=== PATIENT | male | born 1960 | race Hispanic/Latino ===

== ENCOUNTER 2023-07-23 16:51 | HOS | payer OTHER, BC, SELFPAY ==
[2023-07-23] VITALS (20 sets, daily range): BP systolic 107–146; BP diastolic 69–106; PULSE 101–125; RESP 14–30; TEMP 36.1; O2SAT 95–100
--- NOTE | ~2023-07-23 | XR_ITS ---
EXAMINATION: XR chest 1V portable Exam Date/Time: 07/23/2023 19:15 DEGREE CLERK HISTORY: lung CA Comparison: None. RESULT: Lines, tubes, and devices: None. Lungs and pleura: Moderate right costophrenic angle blunting. Cardiomediastinal silhouette: Unremarkable. Other: No acute osseous or upper abdominal finding. IMPRESSION: Moderate pleural effusion. Reviewed, dictated and finalized at location K. EE CLERK IMPRESSION: Moderate pleural effusion.
--- NOTE | 2023-07-23 17:31 | PC.NURSE ---
per call center receptionist, patient has taken 198 tablets of oxycodone 20mg tablets in 5 days. patient is here for further pain control
--- NOTE | 2023-07-23 17:52 | PC.NURSE ---
patient took last dose of oxycodone 40mg this morning around 0900. per hospice director, patient was given ms contin 100mg at 1330 with minimal relief. patient here to be admitted for pain control and to be monitored for detox from oxycodone.
--- NOTE | 2023-07-23 18:52 | ECG_ITS ---
Measurements Intervals [place] Rate: 116 P: 0 MN: 141 QRS: 52 QRSD: 87 T: -6 QT: 311 QTc: 432 Interpretive Statements SINUS TACHYCARDIA POSSIBLE LEFT ATRIAL ENLARGEMENT [-0.1mV P WAVE IN V1/V2] POSSIBLE RIGHT VENTRICULAR CONDUCTION DELAY [RSR (QR) IN V1/V2] ABNORMAL RHYTHM ECG NO PREVIOUS ECG AVAILABLE FOR COMPARISON Electronically Signed On 07-24-2023 8:40:23 NUCLEAR POWERPLANT SUPERVISOR by Renae Huntley M.D.
--- NOTE | 2023-07-23 18:52 | ED.GENADULT ---
HPI - General Adult General Chief complaint: Unspecified Stated complaint: INTRACTABLE PAIN, NEEDS MED ADJUSTMENT Time Seen by Provider: 07/23/23 18:03 History of Present Illness HPI narrative: 63-year-old male with history of metastatic lung cancer to his bones and lymph nodes, NSTEMI, T2DM, reports with his hospice nurse, Donnie, at bedside for uncontrolled pain. Pt was dx with metastatic lung cancer on March of 2021 and is currently in home hospice with [facility]. Per the hospice nurse, the patient took 198 pills of 20 mg oxycodone in the past 5 days. States he contacted the hospice physician who advised to take the pt to the ER for for opioid withdrawal and pain control. Hospice requests starting methadone with Dilaudid for breakthrough pain. The patient is reporting pain to this right anterior lateral chest wall that is worse with inspiration and coughing. Patient also reports some difficulty breathing. Pt was admitted to [facility] in [place] 10 days ago and had a thoracentesis of his right lung done at that time that drained 2 L of fluid. Denies fever, cough. Related Data Home Medications Medication Instructions Recorded Confirmed acetaminophen 1,000 mg PO Q8H PRN Pain, Mild 07/23/23 07/23/23 dexamethasone 4 mg tablet 8 mg PO BID 07/23/23 07/23/23 gabapentin 300 mg tablet 900 mg PO TID 07/23/23 07/23/23 insulin glargine 100 unit/mL (3 6 unit subcut QHS 07/23/23 07/23/23 mL) subcutaneous pen (Lantus Solostar U-100 Insulin) levetiracetam 1,000 mg tablet 1,000 mg PO BID 07/23/23 07/23/23 (Keppra) lorazepam 0.5 mg tablet 0.5 mg PO QHS 07/23/23 07/23/23 lorazepam 0.5 mg tablet 0.5 mg PO TID PRN Anxiety 07/23/23 07/23/23 metoprolol tartrate 50 mg tablet 50 mg PO BID 07/23/23 07/23/23 oxycodone 20 mg tablet 40 mg PO Q2H PRN Pain 07/23/23 07/23/23 sennosides 8.6 mg-docusate sodium 25.8 tab-cap PO BID 07/23/23 07/23/23 50 mg tablet (Senna-S) tamsulosin 0.4 mg capsule (Flomax) 0.4 mg PO QHS 07/23/23 07/23/23 Allergies Allergy/AdvReac Type Severity Reaction Status Date / Time metformin Allergy Unknown Verified 07/23/23 17:18 Review of Systems Review of Systems: CONSTITUTIONAL: Denies fever, chills, or sweats. EYES: Denies visual changes, redness, or discharge. ENT: Denies rhinorrhea, congestion, sore throat, or otalgia. CARDIOVASCULAR: HPI RESPIRATORY: Denies cough or dyspnea. GASTROINTESTINAL: Denies abdominal pain, nausea, vomiting, or diarrhea. GENITOURINARY: Denies dysuria or hematuria. SKIN: Denies rash or itching. MUSCULOSKELETAL: See HPI NEUROLOGIC: Denies headache, numbness, or weakness. PSYCHIATRIC: Denies anxiety or depression. PMFSH Past History Past medical history: Metastatic lung cancer Exam Narrative: GENERAL: Well-appearing, well-nourished, and in no acute distress. HEAD: Normocephalic, atraumatic. EYES: PERRLA and EOMI. ENT: Nares clear, no rhinorrhea or epistaxis. Mucous membranes moist. NECK: Supple. CHEST: Decreased breath sounds in the right lower lung field. Well-healed scar to the right midclavicular line without surrounding erythema, induration or fluctuation. Tenderness to the anterior lateral chest wall. HEART: Regular rate and rhythm. No murmur heard. Normal peripheral pulses. ABDOMEN: Soft, nontender, nondistended, normal active bowel sounds. EXTREMITIES: Normal range of motion. No edema. SKIN: Warm, dry, no rash. NEURO: No focal deficits. Alert and oriented x3 Course Vital Signs Vital signs: Vital Signs Temperature 96.9 F L 07/23/23 17:15 Pulse Rate 114 H 07/23/23 17:15 Respiratory Rate 18 07/23/23 17:15 Blood Pressure 120/69 07/23/23 17:15 Pulse Oximetry 100 07/23/23 17:15 Temperature 96.9 F L 07/23/23 17:15 Pulse Rate 101 H 07/23/23 20:30 Respiratory Rate 14 07/23/23 20:30 Blood Pressure 107/76 07/23/23 19:46 Pulse Oximetry 99 07/23/23 19:47 Medical Decision Making MDM Narrative Medical decision making narrative
[2023-07-23] MEDS: HYDROmorphone HCL INJ (*CRX) 1 MG/ML SYR IV PUSH ×3 (19:09→21:41)
[2023-07-23 19:18] LABS: Basophils Percent Auto 0.4 % (0.2-1.2); Eosinophils Absolute Auto 0.1 K/mm3 (0-0.3); Eosinophils Percent Auto 0.8 % (0-4.4); Hematocrit 45.5 % (42.0-52.0); Hemoglobin 13.9 g/dL (14.0-18.0); Immature Granulocyte Absolute 0.05 K/mm3 (0.00-0.031); Immature Granulocyte Percent A 0.5 % (0-0.5); Lymphocytes Absolute Auto 1.49 K/mm3 (0.9-3.2); Lymphocytes Percent Auto 15.2 % (18.3-44.2); Mean Corpuscular HGB Conc 30.5 g/dl (32-36); Mean Corpuscular Hemoglobin 29.1 pg (26-34); Mean Corpuscular Volume 95.4 fl (80-100); Mean Platelet Volume 9.5 fl (7.4-10.4); Monocytes Absolute Auto 0.8 K/mm3 (0.1-0.6); Monocytes Percent Auto 8.5 % (2.6-8.5); Neutrophils Absolute Auto 7.3 K/mm3 (1.3-6.7); Neutrophils Percent Auto 74.6 % (45.5-73.1); Platelet Count Result 252 k/mm3 (150-375); Red Blood Count 4.77 M/mm3 (4.6-6.20); Red Cell Distribution Width 14.8 % (11.5-14.5); White Blood Count 9.8 K/mm3 (4.5-10.0)
[2023-07-23 19:28] LABS: Alanine Aminotransferase 14 U/L (6-50); Albumin Level 3.8 g/dL (3.5-5.1); Alkaline Phosphatase 89 U/L (38-126); Anion Gap 5 mmol/L (8-16); Aspartate Amino Transferase 22 U/L (17-59); Bilirubin,Total 0.7 mg/dL (0.2-1.3); Blood Urea Nitrogen 12 mg/dL (9-20); Calcium 8.8 mg/dL (8.4-10.2); Carbon Dioxide 27 mmol/L (22-30); Chloride 102 mmol/L (98-107); Estimated CRCL calculation 92 ml/min; Estimated Glomerular Filt Rate > 60; Glucose 196 mg/dL (65-110); Sodium 134 mmol/L (137-145)
[2023-07-23 22:00] LABS: Appearance Urine Clear (Clear); Bilirubin Urine Negative (Negative); Blood Urine Negative (Negative); Color Urine Yellow (Yellow); Glucose Urine UA 1+ mg/dL (Negative); Ketones Urine 1+ mg/dL (Negative); Leukocyte Esterase Ur Negative LEU/UL (Negative); Nitrate Urine Negative (Negative); Protein Urine Negative (Negative); Specific Grav Ur 1.016 (1.001-1.035)
[2023-07-23 22:06] LABS: Add Urine Microscopic? NO
[2023-07-24] VITALS (8 sets, daily range): BP systolic 112–138; BP diastolic 74–96; PULSE 65–99; RESP 14–22; TEMP 36.2–36.6; O2SAT 97–100; BMI 23.3
[2023-07-24] MEDS: HYDROmorphone HCL/PF (*CRX) 50 MG in SODIUM CHLORIDE 0.9% IV 95 ML IV CONT (00:39)
--- NOTE | 2023-07-24 04:43 | PM.IMHP ---
H&P: HPI History of Present Illness Date/Time: 07/24/23 04:43 Chief Complaint: Metastatic cancer pain Narrative: 63-year-old male with a past medical history of stage IV lung cancer with metastases to bone and brain who presented to the ER from home due to intractable pain. The patient is to be admitted for titration of pain medications and continued palliative care/hospice. The patient is under hospice care with [facility]. The patient reported that he was diagnosed with cancer after he fell out of a tree and had a head injury. He had a subdural hematoma at that time that was evacuated. They diagnosed him with stage IV cancer on initial presentation. He opted from the beginning to not pursue any chemotherapy or radiation therapy. His entire goal throughout the course of treatment has been comfort based care. He is having intractable pain especially when he coughs. The pain is in his right rib cage. He is having associated cough. Cough is nonproductive but racking and severe at times. This makes the chest pain worse. He denies any nausea but has had decreased appetite. He has been having some difficulty with constipation. He has had a generally poor appetite. He has had weight loss. Review of Systems Review of Systems: Review of systems was completed with pertinent positives and negatives of up PMFSH Past Medical History Medical History (Updated 07/24/23 @ 07:33 by Renetta Santana DO) Amputation, finger, traumatic Right index and right thumb Constipation due to pain medication Continuous tobacco abuse Metastatic cancer to lung of unknown cell type Diagnosed January 2023 Pain from bone metastases Seizure after head injury Traumatic subdural hematoma Surgical History Surgical History (Updated 07/24/23 @ 07:27 by Renetta Santana DO) History of craniotomy Evacuation of subdural hematoma cause by falling from a tree January 2023 Family History Family History (Updated 07/24/23 @ 07:27 by Renetta Santana DO) Other Lymphoma Social History Social History (Updated 07/24/23 @ 07:29 by Renetta Santana DO) Social History: Patient has smoked up to 2 packs of cigarettes per day since he was teenager. He used to work tree trimming. He is . Code status: DNR/DNI Healthcare power of defense attorney: Smoking packs per day: 0.5 Smoking cigarettes per day: 10.0 Years smoked: 48 Smoking pack-years: 24.00 Smoking status: Current every day smoker Tobacco type: cigarettes Second hand tobacco smoke exposure: No Alcohol intake: former Substance use: never Do You Feel Safe in your Home?: Yes Lack of Transportation: No Lack of Food: Never True Current Housing: I Have Housing Concerned About Future Housing: No Difficulty Paying Gas/Electric Bills: No Difficulty Paying for Meds: No Currently Unemployed: No Education: Grade School Difficulty w/ Childcare or Family Care: No Spiritual care concerns: No Meds Home Medications and Allergies Home Medications Medication Instructions Recorded Confirmed Type acetaminophen 1,000 mg PO Q8H PRN Pain, Mild 07/23/23 07/23/23 History dexamethasone 4 mg tablet 8 mg PO BID 07/23/23 07/23/23 History gabapentin 300 mg tablet 900 mg PO TID 07/23/23 07/23/23 History insulin glargine 100 unit/mL (3 6 unit subcut QHS 07/23/23 07/23/23 History mL) subcutaneous pen (Lantus Solostar U-100 Insulin) levetiracetam 1,000 mg tablet 1,000 mg PO BID 07/23/23 07/23/23 History (Keppra) lorazepam 0.5 mg tablet 0.5 mg PO QHS 07/23/23 07/23/23 History lorazepam 0.5 mg tablet 0.5 mg PO TID PRN Anxiety 07/23/23 07/23/23 History metoprolol tartrate 50 mg tablet 50 mg PO BID 07/23/23 07/23/23 History oxycodone 20 mg tablet 40 mg PO Q2H PRN Pain 07/23/23 07/23/23 History sennosides 8.6 mg-docusate sodium 25.8 tab-cap PO BID 07/23/23 07/23/23 History 50 mg tablet (Senna-S) tamsulosin 0.4 mg capsule (Flomax) 0.4 mg PO
[2023-07-24] MEDS: HYDROmorphone HCL INJ (*CRX) 1 MG/ML SYR 2 MG IV PUSH (05:57)
[2023-07-24] MEDS: methADONE HCL (*CRX) 10 MG TABLET 40 MG PO ×3 (08:15→23:24)
[2023-07-24] MEDS: DEXAMETHASONE 4 MG TABLET 8 MG PO ×2 (08:15→17:43)
[2023-07-24] MEDS: GABAPENTIN 300 MG CAPSULE 900 MG PO ×3 (08:17→17:44)
[2023-07-24] MEDS: levETIRAcetam 500 MG TABLET 1000 MG PO ×2 (08:18→23:24)
[2023-07-24] MEDS: SENNA/DOCUSATE SODIUM TABLET 1 TAB PO (08:18)
[2023-07-24] MEDS: METOPROLOL TARTRATE 50 MG TAB PO ×2 (08:24→23:24)
[2023-07-24] MEDS: MAGNESIUM HYDROXIDE SUSP 30 ML UDC PO (08:31)
--- NOTE | 2023-07-24 09:06 | PM.IMPN ---
Progress Note: A&P Assessment and Plan (1) Pain from bone metastases: Code(s): G89.3 - Neoplasm related pain (acute) (chronic); C79.51 - Secondary malignant neoplasm of bone Status: Acute Assessment and Plan: IV Dilaudid drip and oral methadone/Dilaudid/Ativan for pain/anxiety. Patient is hospice admission managed by [facility] (2) Metastatic cancer to lung of unknown cell type: Code(s): C78.00 - Secondary malignant neoplasm of unspecified lung Status: Acute Assessment and Plan: See above (3) Constipation due to pain medication: Code(s): K59.03 - Drug induced constipation Status: Acute Assessment and Plan: Increased Senna, may need further relief as well (4) Cough: Qualifiers: Cough type: chronic Qualified Code(s): R05.3 - Chronic cough Code(s): R05.9 - Cough, unspecified Status: Acute Assessment and Plan: related to lung cancer, cough medication ordered (5) Continuous tobacco abuse: Code(s): Z72.0 - Tobacco use Status: Acute Plan Hospice inpatient admit due to uncontrolled pain from bone metastasis. Time Spent With Patient Time with patient: 25 - 35 minutes Subjective Date/time seen: 07/24/23 09:06 Interval history: Patient is admitted to inpatient hospice managed by [facility] due to inadequate pain control at home. He is on Dilaudid continuous infusion with oral methadone, Dilaudid and lorazepam available. Patient has stage 4 lung cancer with mets to bone c/o right sided chest pain uncontrolled by home medication regimen. Patient is awake, alert and oriented c/o continued pain preventing him from getting any rest. Patient also complains of constipation from very high dose narcotic use. Review of Systems Review of Systems: All systems reviewed & are unremarkable except as noted in HPI and below Exam Narrative: GENERAL: Awake male patient in obvious pain distress HEAD: Normocephalic, atraumatic. ENT:? Tacky membranes CHEST: Clear to auscultation.? No respiratory distress. Severe right chest tenderness to palpation HEART: Regular rate and rhythm. ? Normal peripheral pulses. ABDOMEN: Soft, nontender, nondistended. EXTREMITIES: Normal range of motion. No peripheral edema. SKIN: Warm dry normal color NEURO: Alert and oriented x3. PSYCH: distressed mood, anxious affect Objective Data Vital Signs Vital Signs: Vital Signs - 24 hr 07/23/23 17:15 07/23/23 17:39 07/23/23 17:45 Temperature 36.1 C L Pulse Rate 114 H 107 H 108 H Respiratory Rate 18 19 27 H Blood Pressure 120/69 125/93 H Pulse Oximetry 100 97 97 Oxygen Delivery 07/23/23 17:46 07/23/23 18:00 07/23/23 18:01 Temperature Pulse Rate 105 H 105 H 105 H Respiratory Rate 21 H 18 19 Blood Pressure 126/96 H Pulse Oximetry 97 97 97 Oxygen Delivery 07/23/23 18:36 07/23/23 18:45 07/23/23 18:48 Temperature Pulse Rate 105 H 107 H 105 H Respiratory Rate 20 24 H 25 H Blood Pressure 127/106 H Pulse Oximetry 98 99 100 Oxygen Delivery 07/23/23 19:00 07/23/23 19:01 07/23/23 19:15 Temperature Pulse Rate 102 H 101 H 103 H Respiratory Rate 21 H 30 H 18 Blood Pressure 140/101 H 131/91 H Pulse Oximetry 100 100 97 Oxygen Delivery 07/23/23 19:16 07/23/23 19:30 07/23/23 19:31 Temperature Pulse Rate 102 H 112 H 125 H Respiratory Rate 24 H 25 H 30 H Blood Pressure 146/87 H Pulse Oximetry 97 95 Oxygen Delivery 07/23/23 19:46 07/23/23 19:47 07/23/23 20:06 Temperature Pulse Rate 108 H 107 H 110 H Respiratory Rate 19 18 27 H Blood Pressure 107/76 Pulse Oximetry 99 99 Oxygen Delivery 07/23/23 20:28 07/23/23 20:30 07/24/23 00:39 Temperature Pulse Rate 104 H 101 H 99 Respiratory Rate 16 14 20 Blood Pressure 112/74 Pulse Oximetry 98 Oxygen Delivery 07/24/23 00:39 07/24/23 00:57 07/24/23 01:20 Temperature 36.6 C Pulse Rate 96 85 98 R
[2023-07-24] MEDS: SENNA/DOCUSATE SODIUM TABLET 2 TAB PO (17:44)
[2023-07-24] MEDS: LORazepam (*CRX) 1 MG TABLET PO (23:24)
[2023-07-24] MEDS: INSULIN GLARGINE (*BKC) 100 UNITS/ML 6 UNITS SUB-Q (23:25)
[2023-07-24] MEDS: TAMSULOSIN HCL 0.4 MG CAPSULE PO (23:26)
[2023-07-24 23:34] LABS: Glucose Point of Care 200 mg/dl (65-105)
[2023-07-25] VITALS (10 sets, daily range): BP systolic 120–129; BP diastolic 70–95; PULSE 71–78; RESP 18–20; TEMP 36–37.2; O2SAT 87–100
[2023-07-25] MEDS: HYDROmorphone HCL/PF (*CRX) 50 MG in SODIUM CHLORIDE 0.9% IV 95 ML IV CONT (00:31)
[2023-07-25 05:24] LABS: Glucose Point of Care 192 mg/dl (65-105)
[2023-07-25] MEDS: methADONE HCL (*CRX) 10 MG TABLET 40 MG PO ×3 (05:41→21:43)
[2023-07-25] MEDS: IPRATROPIUM 0.5 MG/ALBUTEROL SULFATE 2.5 MG AMPUL.NEB 3 ML INHALATION (08:20)
[2023-07-25] MEDS: METOPROLOL TARTRATE 50 MG TAB PO ×2 (09:10→21:46)
[2023-07-25] MEDS: DEXAMETHASONE 4 MG TABLET 8 MG PO ×2 (09:10→17:40)
[2023-07-25] MEDS: MAGNESIUM HYDROXIDE SUSP 30 ML UDC PO (09:10)
[2023-07-25] MEDS: SENNA/DOCUSATE SODIUM TABLET 2 TAB PO (09:10)
[2023-07-25] MEDS: GABAPENTIN 300 MG CAPSULE 900 MG PO ×3 (09:11→21:42)
[2023-07-25] MEDS: levETIRAcetam 500 MG TABLET 1000 MG PO ×2 (09:11→21:43)
--- NOTE | 2023-07-25 14:39 | PM.IMPN ---
Progress Note: A&P Assessment and Plan (1) Pain from bone metastases: Code(s): G89.3 - Neoplasm related pain (acute) (chronic); C79.51 - Secondary malignant neoplasm of bone Status: Acute Assessment and Plan: IV Dilaudid drip and oral methadone/Dilaudid/Ativan for pain/anxiety. Patient is hospice admission managed by [facility] 07/25: IV dilaudid drip increased overnight, mental status changes noted. IV dilaudid drip decreased to 1mg/hr, than again to 0.5mg/hr. At 1530 Called to bedside by and son. Concerned for patient being lethargic. Stating want Diladud drip stopped and for patient to become more alert. Attempted to contact [facility] liason Lynn, to aid in family discussion of pain control and patient orientation status. No answer at this time. Nursing will continue to reach out. Will stop Dilaudid and allow patient to verbalize pain levels. (2) Metastatic cancer to lung of unknown cell type: Code(s): C78.00 - Secondary malignant neoplasm of unspecified lung Status: Acute Assessment and Plan: See above (3) Constipation due to pain medication: Code(s): K59.03 - Drug induced constipation Status: Acute Assessment and Plan: Increased Senna, may need further relief as well 07/25: Senna dose increased to patients home dose after hospice clarification. Mag citrated added at hospice request. (4) Cough: Qualifiers: Cough type: chronic Qualified Code(s): R05.3 - Chronic cough Code(s): R05.9 - Cough, unspecified Status: Acute Assessment and Plan: related to lung cancer, cough medication ordered (5) Continuous tobacco abuse: Code(s): Z72.0 - Tobacco use Status: Acute Plan Hospice inpatient admit due to uncontrolled pain from bone metastasis. Time Spent With Patient Time with patient: 25 - 35 minutes Subjective Date/time seen: 07/25/23 1050 Interval history: 63 year old patient examined at bedside in interval assessment as he presented to ER with hospice nurse for uncontrolled pain. He has dx of metastatic lung cancer with mets to bone he is currently under the care of [facility]. Per ER documentation patient consumed numerous oxycodone tablets over few days and hospice nurse was advised to take patient to ER for opioid withdrawal and pain control. Dilaudid drip was initiated at 1mg/hr, methadone 40 mg q.8 hours , with Dilaudid 8 mg q.4 hours as needed for breakthrough pain. Overnight medication was increased to 1.5mg/hr. Today patient is very lethargic. Arouses to loud sound/ touch but quickly falls back asleep. Dilaudid drip decreased to 1mg/hr. Patient reports pain to right anterior chest- at this time he rates pain at a 2/10. At the request of and [facility], dose was again decreased to 0.5mg/hr, as stated she wanted him to be more awake . Hospice at bedside. Upper airway wheezing noted, Neb treatment order in place, Respiratory to admin. Patient remains constipated. Hospice notes that he take 3 tabs of senokot at home- medication revised, and they request mag citrate. Will continue at lower dilaudid drip dosage and ensure pain control is established. At 1530 patient at bedside and son request for Dilaudid drip to be stopped. Review of Systems Review of Systems: All systems reviewed & are unremarkable except as noted in HPI and below Exam Narrative: GENERAL: Lethargic, arouses to loud sound/touch, quickly fall asleep HEAD: Normocephalic, atraumatic. ENT:? MMM, EOMI CHEST: Diminished.? No respiratory distress. right chest tenderness to palpation, Upper airway wheezes HEART: Regular rate and rhythm. ? Normal peripheral pulses. ABDOMEN: Soft, nontender, nondistended. EXTREMITIES: Normal range of motion. No peripheral edema. SKIN: Warm dry normal color NEURO: Lethargic, When awake A/Ox 2. PSYCH: Cooperative. Objective Data Vital Signs Vital Signs: Vital Sign
[2023-07-25 15:06] LABS: Glucose Point of Care 196 mg/dl (65-105)
[2023-07-25] MEDS: SENNA/DOCUSATE SODIUM TABLET 3 TAB PO (17:39)
[2023-07-25] MEDS: guaiFENesin/CODEINE (*CRX) 200/20 MG 10 ML SYRUP PO (17:40)
[2023-07-25] MEDS: TAMSULOSIN HCL 0.4 MG CAPSULE PO (21:43)
[2023-07-25] MEDS: LORazepam (*CRX) 1 MG TABLET PO (21:43)
[2023-07-25] MEDS: INSULIN GLARGINE (*BKC) 100 UNITS/ML 6 UNITS SUB-Q (21:48)
[2023-07-26] MEDS: methADONE HCL (*CRX) 10 MG TABLET 40 MG PO ×2 (06:11→13:33)
[2023-07-26 08:00] VITALS: BP 125/77; PULSE 51; RESP 18; TEMP 36; O2SAT 95
[2023-07-26 09:09] VITALS: O2SAT 94
[2023-07-26] MEDS: levETIRAcetam 500 MG TABLET 1000 MG PO ×2 (09:29→21:07)
[2023-07-26] MEDS: GABAPENTIN 300 MG CAPSULE 900 MG PO ×3 (09:29→17:48)
[2023-07-26 09:30] VITALS: PULSE 72; O2SAT 95
[2023-07-26] MEDS: SENNA/DOCUSATE SODIUM TABLET 3 TAB PO ×2 (09:30→17:49)
[2023-07-26] MEDS: METOPROLOL TARTRATE 50 MG TAB PO ×2 (09:30→21:08)
[2023-07-26] MEDS: DEXAMETHASONE 4 MG TABLET 8 MG PO ×2 (09:30→17:48)
[2023-07-26] MEDS: MAGNESIUM HYDROXIDE SUSP 30 ML UDC PO (09:31)
[2023-07-26] MEDS: NICOTINE (*PBKC) 21 MG PATCH 1 PATCH TRANSDERM (09:34)
--- NOTE | 2023-07-26 14:18 | PM.DS ---
DS: Admitting Diagnosis Discharge Date 07/26/23 Admitting Diagnosis Pain control, Hospice- [place] [facility] DS: Discharge Diagnosis Discharge Diagnosis (1) Pain from bone metastases: Code(s): G89.3 - Neoplasm related pain (acute) (chronic); C79.51 - Secondary malignant neoplasm of bone Status: Acute Assessment and Plan: IV Dilaudid drip and oral methadone/Dilaudid/Ativan for pain/anxiety. Patient is hospice admission managed by [facility] 07/25: IV dilaudid drip increased overnight, mental status changes noted. IV dilaudid drip decreased to 1mg/hr, than again to 0.5mg/hr. At 1530 Called to bedside by and son. Concerned for patient being lethargic. Stating want Diladud drip stopped and for patient to become more alert. Attempted to contact [facility] liason Lynn, to aid in family discussion of pain control and patient orientation status. No answer at this time. Nursing will continue to reach out. Will stop Dilaudid and allow patient to verbalize pain levels. 07/26: Patient is to discharge home and continue hospice care with [place] [facility] for Stage IV lung cancer with metastasis to the bone. IV dilaudid drip aided in bring paint to a tolerable level and was converted to PO medications that have proven to control patients pain. PO medication adjusted to hospice recommendations. Methadone 30mg q8hr JANELLE, Dilaudid 2mg q4hr PRN and Ativan 1mg q6hr PRN Patient expressed his pain was controlled at this time and rated pain a 2/10 this am (2) Metastatic cancer to lung of unknown cell type: Code(s): C78.00 - Secondary malignant neoplasm of unspecified lung Status: Acute Assessment and Plan: See above (3) Constipation due to pain medication: Code(s): K59.03 - Drug induced constipation Status: Acute Assessment and Plan: Increased Senna, may need further relief as well 07/25: Senna dose increased to patients home dose after hospice clarification. Mag citrated added at hospice request. 07/26: No bowel movement produced this admission. Patient stated he remains comfortable. Abdomen is non distended and non tender. Bowel sounds are active in all quadrants. Likely due to pre-admission consumption of pain medication Educated to continue bowel regimen at home with [facility]. (4) Cough: Qualifiers: Cough type: chronic Qualified Code(s): R05.3 - Chronic cough Code(s): R05.9 - Cough, unspecified Status: Acute Assessment and Plan: related to lung cancer, cough medication ordered 07/26: Continue home medications for cough [facility] to follow for needs (5) Continuous tobacco abuse: Code(s): Z72.0 - Tobacco use Status: Acute Assessment and Plan: 07/26 Tobacco cessation education provided at discharge. Due to his dx of lung cancer it would be benefical for patient to stop smoking tobacco. Plan Hospice inpatient admit due to uncontrolled pain from lung cancer with bone metastasis. DS: Summary Hospital Course Reason for hospitalization: Pain control, Hospice- [facility] Hospital Course: 63 year old male presented to ER with hospice nurse for uncontrolled pain. He has dx of metastatic lung cancer with metastasis to bone. He is currently under the care of [facility]. Per ER documentation patient consumed numerous oxycodone tablets over few days and hospice nurse was advised to take patient to ER for opioid withdrawal and pain control. Patient stated that his pain is located in the right anterior and lateral chest area, which increases with cough. Admitting provider initiated Dilaudid drip at 1mg/hr, methadone 40 mg q.8 hours , with Dilaudid 8 mg q.4 hours as needed for breakthrough pain and Ativan 1mg q.6 hours as needed for anxiety. Overnight medication was increased to 1.5mg/hr due to patient expression of uncontrolled pain. He became lethargic but aroused to loud sound/ touch and would quickly falls back asleep. Dilaudid drip
[2023-07-26] MEDS: methADONE HCL (*CRX) 10 MG TABLET 30 MG PO (21:07)
[2023-07-26 21:08] VITALS: PULSE 68; O2SAT 91
[2023-07-26] MEDS: TAMSULOSIN HCL 0.4 MG CAPSULE PO (21:08)
[2023-07-26] MEDS: LORazepam (*CRX) 1 MG TABLET PO ×2 (21:08→23:17)
[2023-07-26] MEDS: INSULIN GLARGINE (*BKC) 100 UNITS/ML 6 UNITS SUB-Q (21:12)
[2023-07-26 21:22] LABS: Glucose Point of Care 328 mg/dl (65-105)
[2023-07-26 21:40] VITALS: BP 151/87; PULSE 84; RESP 18; TEMP 37.3; O2SAT 93
[2023-07-26] MEDS: guaiFENesin/CODEINE (*CRX) 200/20 MG 10 ML SYRUP PO (22:59)
[2023-07-26 23:00] VITALS: O2SAT 93
[2023-07-26] MEDS: HYDROmorphone HCL (*CRX) 2 MG TABLET PO (23:18)
[2023-07-27] MEDS: methADONE HCL (*CRX) 10 MG TABLET 30 MG PO (07:33)
[2023-07-27] MEDS: DEXAMETHASONE 4 MG TABLET 8 MG PO (07:35)
[2023-07-27 07:45] VITALS: O2SAT 92
[2023-07-27 08:00] VITALS: BP 124/96; PULSE 105; RESP 22; TEMP 36.1; O2SAT 98
[2023-07-27] MEDS: SENNA/DOCUSATE SODIUM TABLET 3 TAB PO (08:37)
[2023-07-27] MEDS: GABAPENTIN 300 MG CAPSULE 900 MG PO (08:37)
[2023-07-27] MEDS: levETIRAcetam 500 MG TABLET 1000 MG PO (08:38)
[2023-07-27] MEDS: METOPROLOL TARTRATE 50 MG TAB PO (08:38)
[2023-07-27] MEDS: MAGNESIUM HYDROXIDE SUSP 30 ML UDC PO (08:41)
[2023-07-27] MEDS: NICOTINE (*PBKC) 21 MG PATCH 1 PATCH TRANSDERM (08:41)
--- NOTE | 2023-07-27 10:18 | PM.DS ---
DS: Admitting Diagnosis Discharge Date 07/27/23 Admitting Diagnosis Pain control, Hospice- [facility] DS: Discharge Diagnosis Discharge Diagnosis (1) Pain from bone metastases: Code(s): G89.3 - Neoplasm related pain (acute) (chronic); C79.51 - Secondary malignant neoplasm of bone Status: Acute Assessment and Plan: IV Dilaudid drip and oral methadone/Dilaudid/Ativan for pain/anxiety. Patient is hospice admission managed by [facility] 07/25: IV dilaudid drip increased overnight, mental status changes noted. IV dilaudid drip decreased to 1mg/hr, than again to 0.5mg/hr. At 1530 Called to bedside by and son. Concerned for patient being lethargic. Stating want Diladud drip stopped and for patient to become more alert. Attempted to contact [facility] liason Lynn, to aid in family discussion of pain control and patient orientation status. No answer at this time. Nursing will continue to reach out. Will stop Dilaudid and allow patient to verbalize pain levels. 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 IV dilaudid drip aided in bring paint to a tolerable level and was converted to PO medications that have proven to control patients pain. PO medication adjusted to hospice recommendations. Methadone 30mg q8hr JANELLE, Dilaudid 2mg q4hr PRN and Ativan 1mg q6hr PRN Patient expressed his pain was controlled at this time and rated pain a 2/10 this am. * Discharge was postponed due to hospice not being able to have appropriate equipment delivered to patient home to ensure comfort and proper care. 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 Today patient stated he is comfortable and ready to return home. (2) Metastatic cancer to lung of unknown cell type: Code(s): C78.00 - Secondary malignant neoplasm of unspecified lung Status: Acute Assessment and Plan: See above (3) Constipation due to pain medication: Code(s): K59.03 - Drug induced constipation Status: Acute Assessment and Plan: Increased Senna, may need further relief as well 07/25: Senna dose increased to patients home dose after hospice clarification. Mag citrated added at hospice request. 07/26: No bowel movement produced this admission. Patient stated he remains comfortable. Abdomen is non distended and non tender. Bowel sounds are active in all quadrants. Likely due to pre-admission consumption of pain medication Educated to continue bowel regimen at home with [facility] hospice. * Discharge was postponed due to hospice not being able to have appropriate equipment delivered to patient home to ensure comfort and proper care. 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 Today patient stated he is comfortable and ready to return home. Continue home bowel regimen (4) Cough: Qualifiers: Cough type: chronic Qualified Code(s): R05.3 - Chronic cough Code(s): R05.9 - Cough, unspecified Status: Acute Assessment and Plan: related to lung cancer, cough medication ordered 07/26: Continue home medications for cough [facility] hospice to follow for needs 07/27 Discharge and continue home medications. [facility] hospice to follow (5) Continuous tobacco abuse: Code(s): Z72.0 - Tobacco use Status: Acute Assessment and Plan: 07/26 Tobacco cessation education provided at discharge. Due to his dx of lung cancer it would be benefical for patient to stop smoking tobacco. Plan Hospice inpatient admit due to uncontrolled pain from lung cancer with bone metastasis. DS: Summary Hospital Course Reason for hospitalization: Pain control, Hospice- [facility] Hospital Course: 63 year old male presented to ER with hospice nurse for uncontrolled pain. He has dx of metastatic lung canc
== END 2023-07-27 10:35 | disposition hospice, home (50) | DRG 951 ==
LOC: ANHED 07-24 00:12 → ANH3MEDSUR 07-24 00:59
PROVIDERS: Admitting Provider Internal Medicine; Emergency Provider Physician Assistant; Visit Provider Nurse Practitioner Family
DX: Z51.5 Encounter for palliative care (principal); C79.51 Secondary malignant neoplasm of bone; C34.90 Malignant neoplasm of unspecified part of unspecified bronchus or lung; C79.31 Secondary malignant neoplasm of brain; G89.3 Neoplasm related pain (acute) (chronic); K59.03 Drug induced constipation; E11.9 Type 2 diabetes mellitus without complications; F17.210 Nicotine dependence, cigarettes, uncomplicated; Z66 Do not resuscitate; I25.2 Old myocardial infarction; Z89.021 Acquired absence of right finger(s)
CPT/HCPCS: 36415; 71045; 80053; 81003; 82948; 85025; 93005; 94640; A9270; J1170; J1815; J8540